=== PATIENT | female | born 1980 | race Caucasian/White ===

== ENCOUNTER 2022-11-07 05:32 | Emergency (ER) | payer MEDICAID ==
[~2022-11-07] VITALS: Ht 160 cm; Wt 88.6 kg
[~2022-11-07 05:32] MED LIST: PHE100C PO
[2022-11-07 06:46] LABS: Basophils # (auto) 0 10 ^3/uL (0-0.2); Basophils % (auto) 0.4 % (0.0-2.0); Eosinophils # (auto) 0 10 ^3/uL (0-0.8); Eosinophils % (auto) 0.5 % (0.0-7.0); Hematocrit 41.8 % (36.0-46.0); Hemoglobin 14.8 g/dL (12.2-16.2); Lymphocytes # (auto) 3.3 10 ^3/uL (0.4-5.4); Mean Corpuscular Hemoglobin 29.2 pg (28.0-32.0); Mean Corpuscular Hgb Conc. 35.4 g/dL (32.0-36.0); Mean Corpuscular Volume 82.7 fL (80.0-100.0); Monocytes # (auto) 0.6 10 ^3/uL (0-1.3); Neutrophils # (auto) 4.4 10 ^3/uL (1.6-8.6); Neutrophils % (auto) 53.1 % (37.0-80.0); Nucleated Red Blood Cells % 0.2 %; Red Blood Cells 5.05 10^6/uL (4.0-5.20); Red Cell Distribution Width 14.1 % (11.8-14.3); White Blood Cell 8.4 10^3/uL (4.4-10.8)
[2022-11-07] MEDS ORDERED: cefTRIAXone SOD 1,000 MG VL IM ONE (07:00)
[2022-11-07] MEDS ORDERED: methylPREDNISolone SOD SUCC 125 MG/2 ML VL IM ONE (07:00)
[2022-11-07 07:12] LABS: Albumin 3.6 g/dL (3.4-5.0); BUN/Creatinine Ratio 10.7; Calcium 9.2 mg/dL (8.5-10.1); Potassium 4.3 mmol/L (3.5-5.1)
[2022-11-07 07:15] LABS: Bilirubin, Total 0.5 mg/dL (0.2-1.0); Total Protein 7.7 g/dL (6.4-8.2)
[2022-11-07] MEDS ORDERED: PRED10TA PO (10:02)
[2022-11-07] MEDS ORDERED: LEVO-28 PO (10:02)
[2022-11-07 10:37] VITALS: BP 127/82
== END 2022-11-07 10:46 | disposition home or self-care (01) ==
LOC: ER 05:32
DX: J06.9 Acute upper respiratory infection, unspecified (principal); Z20.822 Contact with and (suspected) exposure to COVID-19
CPT/HCPCS: 36415; 71045; 80053; 84484; 85025; 85379; 87426; 87804; 93005; 96372; 99285; J0696; J2930

== ENCOUNTER 2025-09-02 12:22 | Emergency (ER) | payer MEDICAID ==
[~2025-09-02] VITALS: Ht 160 cm; Wt 75.0 kg
[~2025-09-02 12:22] MED LIST changes: +LEVO500T91 PO; -PHE100C PO; +PHEN1CAP38 PO; +PRED10TA PO
[2025-09-02 12:23] VITALS: BP 146/85; PULSE 108; RESP 18; TEMP 97.8; O2SAT 96
== END 2025-09-02 14:10 | disposition left against medical advice (07) ==
LOC: ER 12:22
DX: S20.161A Insect bite (nonvenomous) of breast, right breast, initial encounter (principal); Z53.21 Procedure and treatment not carried out due to patient leaving prior to being seen by health care provider; W57.XXXA Bitten or stung by nonvenomous insect and other nonvenomous arthropods, initial encounter; Y93.89 Activity, other specified; Y92.89 Other specified places as the place of occurrence of the external cause; Y99.8 Other external cause status

== ENCOUNTER 2025-09-05 05:10 | Emergency (ER) | payer MEDICAID ==
[~2025-09-05] VITALS: Ht 160 cm; Wt 77.8 kg
[2025-09-05 06:20] VITALS: BP 146/94; PULSE 96; RESP 13; TEMP 98.3; O2SAT 100
--- NOTE | 2025-09-05 06:34 | ED.PDOC ---
History of Present Illness HPI Comments This is a 45-year-old female who comes in with chief complaint of redness and possible insect bite to the right chest. There is some redness and tenderness and there was some drainage of pus earlier. The patient denies any fever or chills. She was able to ambulate into the emergency department's without any difficulty. The patient states that she was bitten by a spider but now she also admits to using methamphetamines. She states that she does not use needles at this time. She is accompanied in the emergency department's by her . The patient has no other complaints at this time. Chief Complaint: Insect Bite Time Seen by MD: 06:08 Primary Care Provider: GÉNESISIES Reviewed Notes: Nurses Notes, Medications, Allergies (No allergies to medications) Allergies: Coded Allergies: NO KNOWN ALLERGIES (Unverified , 03/30/14) Home Meds Active Scripts Sulfamethoxazole-Trimethoprim (Bactrim) 1 Tab Tab, 1 TAB PO BID, #20 TAB Prov:BALDO GARCÍA MD 09/05/25 Levofloxacin Hemihydrate (LEVOFLOXACIN) 500 Mg Tab, 500 MG PO DAILY for 10 Days, #10 MG Prov:KALLI BOSWELL MD 11/07/22 Prednisone (Prednisone) 10 Mg Tab, 10 MG PO DAILY for 7 Days, #7 MG Prov:KALLI BOSWELL MD 11/07/22 Reported Medications Phenytoin Sodium (DILANTIN CAPSULE) 100 Mg Cp, 100 MG PO for 30 Days 03/30/14 Information Source: Patient Mode of Arrival: Ambulatory Severity: Mild Timing: Days (Started six days ago) Duration: Since onset Prehospital treatment: None Location: Redness to the right chest Past Medical History PAST MEDICAL HISTORY: Cancer (Previous ovarian cancer), Seizures Surgical History: , Hysterectomy COIL CONNECTOR History: No Pertinent COIL CONNECTOR History Family History Family History: Family hx of DM Social History Smoker: Secondhand Alcohol: Occasionally Drugs: Marijuana, Methamphetamine Lives In: Home Constitutional: denies: chills, diaphoresis, fatigue, fever, malaise, sweats, weakness, others EENTM: denies: blurred vision, double vision, ear bleeding, ear discharge, ear drainage, ear pain, ear ringing, eye pain, eye redness, hearing loss, mouth pain, mouth swelling, nasal discharge, nose bleeding, nose congestion, nose pain, photophobia, tearing, throat pain, throat swelling, voice changes, others Respiratory: denies: cough, hemoptysis, orthopnea, SOB at rest, shortness of breath, SOB with excertion, stridor, wheezing, others Cardiovascular: denies: chest pain, dizzy spells, diaphoresis, Dyspnea on exertion, edema, irregular heart beat, left arm pain, lightheadedness, palpitations, PND, syncope, others Gastrointestinal: denies: abdomen distended, abdominal pain, blood streaked bowels, constipated, diarrhea, dysphagia, difficulty swallowing, hematemesis, melena, nausea, poor appetite, poor fluid intake, rectal bleeding, rectal pain, vomiting, others Genitourinary: denies: abnormal vagina bleeding, burning, dyspareunia, dysuria, flank pain, frequency, hematuria, incontinence, pain, , vagina discharge, urgency, others Neurological: denies: dizziness, fainting, headache, left sided numbness, left sided weakness, numbness, paresthesia, pre-existing deficit, right sided numbness, right sided weakness, seizure, speech problems, tingling, tremors, weakness, others Musculoskeletal: denies: back pain, gout, joint pain, joint swelling, muscle p ain, muscle stiffness, neck pain, others Integumetry: reports: wounds (Redness and tenderness around the right chest region); denies: bruises, change in color, change in hair/nails, dryness, laceration, lesions, lumps, rash, others Allergic/Immunocompromised: denies: Difficulty Healing, Frequent Infections, Hives, Itching, others Hematologic/Lymphatic: denies: anemia, blood clots, easy bleeding, easy bruising, swollen glands, others Endocrine: denies: excessive hunger, excessive sweating, excessive thirst, excessive urination, flushing, intolerance to cold, intolerance to heat, unexplained weight gain, unexplained weight loss, others Psychiatric: denies: anxiety, bipolar disorder, depression, hopeless, panic disorder, schizophrenia, sleepless, suicidal, others Physical Exam General Appearance: Moderate Distress HEENT: Normal ENT Inspection, Pharynx Normal, TMs Normal Neck: Full Range of Motion, Non-Tender, Normal, Normal Inspection Respiratory: Chest Non-Tender, Lungs Clear, No Accessory Muscle Use, No Respiratory Distress, Normal Breath Sounds Cardiovascular: No Edema, No JVD, No Murmur, No Gallop, Normal Peripheral Pulses, Regular Rate/Rhythm Breast Exam: Deferred Gastrointestinal: No Organomegaly, Non Tender, No Pulsatile Mass, Normal Bowel Sounds, Soft Genitalia: Deferred Pelvic: Deferred Rectal: Deferred Extremities: No calf tenderness, Normal capillary refill, Normal inspection, Normal range of motion, Non-tender, No pedal edema Musculoskeletal : Apperance: Normal Neurologic: Alert, baker helper II-XII nml as Tested, No Motor Deficits, Normal Affect, Normal Mood, No Sensory Deficits Cerebellar Function: Normal Reflexes: Normal Skin: Dry, Warm, Wounds (The patient has redness and tenderness around the right chest region with no fluctuance) Lymphatic: No Adenopathy Was a procedure done? Was a procedure done?: No Differential Dx Considerations may include: Cellulitis, abscess, substance abuse X-Ray, Labs, Meds, VS Vital Signs Date Time Temp Pulse Resp B/P (MAP) Pulse Ox O2 Delivery O2 Flow Rate FiO2 09/05/25 06:20 98.3 96 13 146/94 (111) 100 98.3 09/05/25 06:20 96 13 100 Room Air* 0 21 09/05/25 05:13 98.8 108 18 118/86 96 98.8 At this time, the patient is being discharged The patient was given Bactrim here in the emergency department's The patient was given substance abuse counseling Time of 1ST Reevaluation: 06:33 Reevaluation 1ST: Unchanged Patient Education/Counseling: Diagnosis, Treatment, Prognosis, Need For Follow Up Family Education/Counseling: Diagnosis, Treatment, Prognosis, Need For Follow Up SEPSIS Sepsis Screen Date sepsis recognized/suspect: Sep 05, 2025 Time Sepsis recognized/suspect: 0620 Recent Procedure: No On Antibiotic Therapy: No Respiratory Rate >20: No Heart Rate >90: Yes Temp<36 C (96.8 F) or >38.3 C: No SBP <90 or MAP <65 mmHG: No New Acute Mental Status Change: No Is the patient on CPAP, BIPAP,: No Vital Signs Date Time Temp Pulse Resp B/P (MAP) Pulse Ox O2 Delivery O2 Flow Rate FiO2 09/05/25 06:20 98.3 96 13 146/94 (111) 100 98.3 09/05/25 06:20 96 13 100 Room Air* 0 21 09/05/25 05:13 98.8 108 18 118/86 96 98.8 Departure 1 Departure Time of Disposition: 06:34 Impression: Primary Impression: Cellulitis Qualified Codes: L03.313 - Cellulitis of chest wall Additional Impression: Substance abuse Disposition: 01 HOME / SELF CARE / HOMELESS Condition: Fair e-Prescriptions Sulfamethoxazole-Trimethoprim (Bactrim) 1 Tab Tab 1 TAB PO BID, #20 TAB Prov: BALDO GARCÍA MD 09/05/25 Discharged With: Self, Spouse Critical Care Note Critical Care Time?: No Stability Stability form required: No Heart Score Heart Score: Heart Score Response (Comments) Value History N/A 0 EKG N/A 0 Age N/A 0 Risk Factors N/A 0 Troponin N/A 0 Total 0 BALDO GARCÍA MD Sep 05, 2025 06:34
[2025-09-05] MEDS ORDERED: SULF400T11 PO (06:35)
[2025-09-05] MEDS: SULFAMETHOX W/TRIMETH(800/160MG) DS TAB PO ONE (06:37)
== END 2025-09-05 06:41 | disposition home or self-care (01) ==
LOC: ER 05:12
DX: L03.313 Cellulitis of chest wall (principal); F15.90 Other stimulant use, unspecified, uncomplicated; Z90.710 Acquired absence of both cervix and uterus; Z79.899 Other long term (current) drug therapy